=== PATIENT | female | born 1975 | race Caucasian/White ===

== ENCOUNTER 2017-12-27 18:09 | Emergency (ER) | payer SELFPAY ==
[2017-12-27 18:32] VITALS: BMI 37.3
[2017-12-27 18:34] VITALS: O2SAT 98
--- NOTE | 2017-12-27 19:00 | ED PDOC ---
Arrival/HPI - General Chief Complaint: Lower Extremity Problem/Injury Time Seen by Provider: 12/27/17 18:17 Historian: Patient - History of Present Illness Narrative History of Present Illness (Text): 12/27/17 18:57 42yo female with no pmhx who present to ED for puncture wound to her right foot. states she was puncture by a diabetic syringe yesterday, [place]. She came to ED today because she was worried about infection. Denies pain , redness, discharge, any other complaint. She is not up to date with her TD booster. Past Medical History - Provider Review Nursing Documentation Reviewed: Yes - Psychiatric Hx Substance Use: No Family/Social History - Physician Review Nursing Documentation Reviewed: Yes Family/Social History: Unknown Family HX Smoking Status: Never Smoked Hx Alcohol Use: No Hx Substance Use: No Allergies/Home Meds Allergies/Adverse Reactions: Allergies No Known Allergies Allergy (Verified 12/27/17 18:31) Review of Systems - Physician Review All systems were reviewed & negative as marked: Yes - Review of Systems Constitutional: Normal Eyes: Normal ENT: Normal Respiratory: Normal Cardiovascular: Normal Gastrointestinal: Normal Genitourinary Female: Normal Musculoskeletal: Normal Skin: Other (Puncture wound to right foot) Neurological: Normal Endocrine: Normal Hemo/Lymphatic: Normal Psychiatric: Normal Physical Exam Vital Signs Reviewed: Yes Vital Signs Temp Pulse Resp BP Pulse Ox 12/27/17 18:34 128/82 12/27/17 18:33 98.2 F 92 H 17 98 Temperature: Afebrile Blood Pressure: Normal Pulse: Regular Respiratory Rate: Normal Appearance: Positive for: Well-Appearing, Non-Toxic, Comfortable Pain Distress: None Mental Status: Positive for: Alert and Oriented X 3 - Systems Exam Head: Present: Atraumatic, Normocephalic Pupils: Present: PERRL Extroacular Muscles: Present: EOMI Conjunctiva: Present: Normal Mouth: Present: Moist Mucous Membranes Neck: Present: Normal Range of Motion Respiratory/Chest: Present: Clear to Auscultation, Good Air Exchange. No: Respiratory Distress, Accessory Muscle Use Cardiovascular: Present: Regular Rate and Rhythm, Normal S1, S2. No: Murmurs Abdomen: No: Tenderness, Distention, Peritoneal Signs Back: Present: Normal Inspection Upper Extremity: Present: Normal Inspection. No: Cyanosis, Edema Lower Extremity: Present: Normal Inspection. No: Edema Neurological: Present: GCS=15, CN II-XII Intact, Speech Normal Skin: Present: Warm, Dry, Normal Color, Other (No puncture wound noted on plantar right foot. No tenderness. No erythema.). No: Rashes Psychiatric: Present: Alert, Oriented x 3, Normal Insight, Normal Concentration Medical Decision Making ED Course and Treatment: 12/27/17 20:28 PT presented for a puncture wound to her right foot. Hepatitis panel and HIV test was ordered Her TD booster was updated She was started on prophylactic abx She was offered antiviral/HARRT medication, but declined. The by the bedside who translated stated they will wait for the result first. - Medication Orders Current Medication Orders: Discontinued Medications Amoxicillin/Clavulanate Potassium (Augmentin 875 Mg-125 Mg Tab) 1 tab PO STAT STA PRN Reason: Protocol Stop: 12/27/17 18:56 Last Admin: 12/27/17 19:29 Dose: 1 tab Tetanus/Reduced Diphtheria/Acell Pertussis (Boostrix Vaccine Inj) 0.5 ml IM .ONCE ONE Stop: 12/27/17 18:55 Last Admin: 12/27/17 19:27 Dose: 0.5 ml [facility] Immunization Data Document 12/27/17 19:27 (Rec: 12/27/17 19:28 [email or web address]) Immunization Data Vaccine Information Sheet Given Yes Immunization Registry Document 12/27/17 19:27 (Rec: 12/27/17 19:28 [email or web address]) Immunization Registry Consent Date 12/27/17 Disposition/Present on Arrival - Present on Arrival Any Indicators Present on Arrival: No History of DVT/PE: No History of Uncontrolled Diabetes: No Urinary Catheter: No History of Decub. Ulcer: No History Surgical Site Infection Following: None - Disposition Have Diagnosis and Disposition been Completed?: Yes Diagnosis: Puncture wound Disposition: HOME/ ROUTINE Disposition Time: 20:10 Patient Plan: Discharge Patient Problems: Current Active Problems Problem Status Onset Puncture wound Acute Condition: STABLE Discharge Instructions (ExitCare): Wound Care Additional Instructions: Follow up with Medical records for result Follow up with the clinic Return to ED for any new or worsening symptoms Prescriptions: Amoxicillin/Clavulanate [Augmentin 875 MG-125 MG] 1 tab PO BID #20 tab Referrals: Tasneem Tran MD [Medical Doctor] - Follow up with primary [facility] [place] [Outside] - Follow up with primary [facility] [Outside] - Follow up with primary Forms: [employer] (Syrian)
[2017-12-27] MEDS: TDAP Vaccine 0.5 mL Syr IM ONE (19:27)
[2017-12-27] MEDS: Amoxicillin-Clav 875-125 mg Tab PO STA (19:29)
[2017-12-27 20:31] VITALS: BP 118/76; PULSE 68; RESP 16; TEMP 98.7
[2017-12-27 22:11] LABS: HEPATITIS B SURFACE AG Negative (NEGATIVE)
[2017-12-27 22:17] LABS: HEPATITIS A IGM NEGATIVE (NEGATIVE); HEPATITIS B CORE AB NEGATIVE (NEGATIVE)
[2017-12-27 22:29] LABS: HEPATITIS C ANTIBODY NEGATIVE (NEGATIVE)
== END 2017-12-27 20:25 | disposition home or self-care (01) ==
LOC: ED 18:09
DX: S91.331A Puncture wound without foreign body, right foot, initial encounter (principal); W46.0XXA Contact with hypodermic needle, initial encounter; Z23 Encounter for immunization